=== PATIENT | female | born 1980 | race Caucasian/White ===

== ENCOUNTER 2021-09-01 08:37 | Observation (INO) ==
[2021-09-01] MEDS ORDERED: 0.9 % Sodium Chloride 500 ML IVC ONE (08:50)
[2021-09-01 09:09] LABS: Basophils % 0.3 %; Eosinophils # 0.2 K/mcL (0.0-0.6); Eosinophils % 2.9 %; Hematocrit 40.9 % (35.3-44.9); Hemoglobin 14.1 g/dL (11.5-15.4); Immature Granulocytes % 0.3 % (0-4); Lymphocytes # 1.1 K/mcL (0.6-4.6); Lymphocytes % 17.1 %; Mean Corpuscular HGB Conc 34.5 g/dL (31.6-35.5); Mean Corpuscular Hemoglobin 29.4 pg (28.0-33.3); Mean Corpuscular Volume 85.4 fL (83.0-100.0); Mean Platelet Volume 9.2 fL (9.4-12.4); Monocytes # 0.6 K/mcL (0.0-1.3); Monocytes % 9.2 %; Neutrophils # 4.6 K/mcL (1.6-8.9); Platelet Count 273 K/mcL (140-400); Red Blood Count 4.79 M/mcL (3.82-4.97); Segmented Neutrophils % 70.2 %; White Blood Count 6.6 K/mcL (4.3-11.1)
[2021-09-01 09:16] LABS: Prothrombin Time 10.8 Seconds (9.4-12.1)
[2021-09-01 09:19] LABS: Bilirubin,Urine Negative (Negative); Blood,Urine Large (Negative); Clarity,Urine Clear (Clear); Color,Urine Colorless (Yellow); Glucose,Urine (UA) Normal (Normal); Ketones,Urine Negative (Negative); Leukocyte Esterase,Urine Negative (Negative); Nitrite,Urine Negative (Negative); PH,Urine 6.5 pH Units (5.0-8.0); Protein,Urine Negative (Neg-Trace); RBC,Urine 0-3 per hpf (0-3); Specific Gravity,Urine 1.005 (1.010-1.025); Squamous Epithelial Cell,Urine Few per hpf (None-Few); Urobilinogen,Urine Normal (Normal); WBC,Urine 0-3 per hpf (0-3)
[2021-09-01 09:19] LABS: Activated Partial Thrombo Time 30.2 Seconds (26.0-36.0)
[2021-09-01 09:30] LABS: BUN/Creatinine Ratio 8 (6-26); Blood Urea Nitrogen 6 mg/dL (6-20); Carbon Dioxide 34 mEq/L (23-29); Chloride 91 mEq/L (98-107); Glucose 90 mg/dL (70-105); Osmolality,Calculated 273 (280-300); Potassium 2.6 mEq/L (3.5-5.1); Sodium 133 mEq/L (136-145); Troponin I < 0.03 ng/mL (< 0.04); eGFR For African Americans > 60 (> 60); eGFR For Non-African Americans > 60 (> 60)
[2021-09-01] MEDS ORDERED: Potassium Citrate 10 MEQ TABLET.ER PO ONE (09:33)
[2021-09-01] MEDS ORDERED: Mag Hydrox/Al Hydrox/Simeth 30 ML UDC PO PRN (09:48)
[2021-09-01] MEDS ORDERED: MOM Conc 10 ML UD.LIQ PO PRN (09:48)
[2021-09-01] MEDS ORDERED: Melatonin 3 MG TABLET PO PRN (09:48)
[2021-09-01] MEDS ORDERED: Ondansetron ODT 4 MG TAB.RAPDIS SL PRN (09:48)
[2021-09-01] MEDS ORDERED: Acetaminophen 325 MG TABLET PO PRN (09:48)
[2021-09-01] MEDS ORDERED: Naloxone 0.4 MG/ML INJ IVP PRN (09:48)
[2021-09-01 10:03] LABS: Magnesium 1.7 mg/dL (1.6-2.6)
[2021-09-01] MEDS: Ringers Solution, Lactated 1,000 ML IVC SCH (12:31)
[2021-09-01] MEDS: *HR* Heparin 5,000 UNIT/ML VIAL SQ SCH ×2 (14:16→22:12)
[2021-09-01] MEDS: ALPRAZolam 1 MG TABLET PO SCH ×2 (15:34→20:09)
[2021-09-02] MEDS: Ringers Solution, Lactated 1,000 ML IVC SCH (04:25)
[2021-09-02 05:08] LABS: Hematocrit 40.4 % (35.3-44.9); Hemoglobin 13.8 g/dL (11.5-15.4); Mean Corpuscular HGB Conc 34.2 g/dL (31.6-35.5); Mean Corpuscular Hemoglobin 29.7 pg (28.0-33.3); Mean Corpuscular Volume 87.1 fL (83.0-100.0); Mean Platelet Volume 9.4 fL (9.4-12.4); Platelet Count 300 K/mcL (140-400); Red Blood Count 4.64 M/mcL (3.82-4.97)
[2021-09-02 05:28] LABS: BUN/Creatinine Ratio 6 (6-26); Blood Urea Nitrogen 4 mg/dL (6-20); Calcium 8.7 mg/dL (8.6-10.3); Carbon Dioxide 29 mEq/L (23-29); Chloride 101 mEq/L (98-107); Glucose 114 mg/dL (70-105); Osmolality,Calculated 280 (280-300); Potassium 3.9 mEq/L (3.5-5.1); Sodium 136 mEq/L (136-145); eGFR For African Americans > 60 (> 60); eGFR For Non-African Americans > 60 (> 60)
[2021-09-02] MEDS: *HR* Heparin 5,000 UNIT/ML VIAL SQ SCH (05:46)
[2021-09-02 06:59] VITALS: BP 127/85; PULSE 81; TEMP 97.9; O2SAT 97
[2021-09-02] MEDS: ALPRAZolam 1 MG TABLET PO SCH (08:14)
[2021-09-02] MEDS ORDERED: BuPROPion XL (24 HR) 150 MG TABLET PO SCH (09:00)
[2021-09-02] MEDS ORDERED: amLODIPine 5 MG TABLET PO SCH (09:00)
== END 2021-09-02 09:25 | disposition home or self-care (01) ==
LOC: EMEROOARM 08:37 → 3ANU 08:37 → SUATTDRO 10:37 → 3ANU 11:35
PROVIDERS: ADMIT Internal Medicine; ATTEND Family Medicine